=== PATIENT | female | born 1990 | race Caucasian/White ===

== ENCOUNTER 2017-11-04 16:58 | Emergency (ER) | payer BC ==
[~2017-11-04] VITALS: Ht 172.7 cm; Wt 124.3 kg
[2017-11-04] MEDS ORDERED: SUCRALFATE1 GM PO (17:12)
[2017-11-04] MEDS ORDERED: ACID CONTROL150 MG PO (17:12)
[2017-11-04] MEDS ORDERED: PROMETHAZINE12.5 M1 PO (17:12)
[2017-11-04] MEDS ORDERED: PRENATAL 19 TA1 EAC1 PO (17:13)
[2017-11-04] MEDS ORDERED: KEFLEX500 MG PO (17:26)
== END 2017-11-04 17:40 | disposition home or self-care (01) ==
LOC: ED 16:58
DX: J06.9 Acute upper respiratory infection, unspecified (principal); Z90.49 Acquired absence of other specified parts of digestive tract; Z79.899 Other long term (current) drug therapy
CPT/HCPCS: 99283